=== PATIENT | male | born 1965 | race Hispanic/Latino ===

== ENCOUNTER 2024-05-07 12:25 | Emergency (ER) | payer SELFPAY ==
[2024-05-07 12:30] VITALS: BP 216/138
--- NOTE | 2024-05-07 13:40 | ED.GENMED ---
History of Present Illness
General
Chief Complaint: Musculo-Skeletal Complaint
Source: patient
Time Seen by Provider: 05/07/24 12:42
History of Present Illness
History of Present Illness:
58-year-old male presenting to the emergency department for evaluation of right wrist pain following an accidental fall in the snow and ice 3 weeks ago. Patient has had continued pain that worsens with range of motion. [id number]. No
other injuries sustained. Also of note while in triage patient was found to be significantly hypertensive. Family notes that he does not have any medical insurance and has not been seen by medical at least 12 years. He has no chest pain,
shortness of breath, headaches, visual changes and feels that he is in his usual state of health outside of his right wrist pain that has been ongoing.
Past History
Past History
ED Past Medical History: None
ED Past Surgical History: None
Social History
Tobacco: Non-smoker
Alcohol: None
Drug: None
Personal: Single
Living: with family
Review of Systems
Review of Systems
All Other Systems: ROS reviewed and negative except as documented in HPI and ROS
Phy Exam
Physical Exam
Physical Exam:
GENERAL: Alert , in no apparent distress
EYE: conjunctiva clear
Head: Normocephalic atraumatic
NECK: Supple,
ENT: mmm.
LUNGS: no acute respiratory distress
NEUROLOGICAL: Alert and oriented
SKIN: Warm and dry, skin intact.
MUSCULOSKELETAL: Right upper extremity: No obvious deformity, erythema, edema, ecchymosis, abrasions or lacerations. Patient allows for full range of motion of the digits, wrist, elbow and shoulder without difficulty. Extremity is otherwise warm
and well-perfused and neurovascularly intact
PSYCH: Normal and appropriate interaction.
Scores
Heart Failure Risk
Heart Failure Risk Score: Not Applicable
Heart Score for Chest Pain Patients
STEMI patient?: Not applicable
Withdrawal Assessment of Alcohol
Withdrawal Assessment Completed?: Not applicable
Course
Orders/Labs/Results
Orders:
Orders
05/07/24 12:37
CR Wrist - Right Min 3 Views Urgent
Reason For Exam: injury
Vital Signs
Initial and Last Documented VS:
Initial Vital Signs
Temp Pulse Resp BP Pulse Ox
97.6 F 82 16 216/138 100
05/07/24 12:30 05/07/24 12:30 05/07/24 12:30 05/07/24 12:30 05/07/24 12:30
Last Documented Vital Signs
Temp Pulse Resp BP Pulse Ox
97.6 F 82 16 216/138 100
05/07/24 12:30 05/07/24 12:30 05/07/24 12:30 05/07/24 12:30 05/07/24 12:30
Procedures
Splinting/Sling Placement
Right Upper Arm:
Procedure completed by: Adeline
Pre-splint extermity exam: neurovascular intact
Type of splint: volar
Splint material: other (3 inch Ortho-Glass)
Splint checked by provider?: Yes
Normal distal neurovascular exam?: Yes
MDM/Problems Addressed
Differential Diagnosis Includes:
Fracture, sprain, contusion, incidental finding of asymptomatic hypertension, no signs to suggest hypertensive urgency/emergency
MDM/Problems Addressed:
58-year-old male presenting to the emergency department for evaluation of right wrist pain following accidental fall 3 weeks ago. X-ray ordered from triage shows a triquetral fracture. Splint was placed as above. Patient currently does not have a
primary care provider and does not have insurance. Given his lack of outpatient follow-up I will provide him with information for the medical clinic. I will also initiate the patient on a low-dose of amlodipine to help with the start of better
blood pressure management. Patient family will help arrange follow-up with the medical clinic. They are aware of return precautions to the emergency department. Patient is otherwise stable for
*Critical Care Note
Total Time (30-74mins, 75-104mins- exclusive of procedures): Not Applicable
ED Attending Note
-
Portions of this chart may have been created with voice recognition software.� Occasional wrong word or��sound alike� substitutions may have occurred due to the inherent limitations of voice recognition software.
Discharge Plan
Departure
Patient Disposition: Home (Routine Discharge)
Date of Disposition: 05/07/24
Time of Disposition: 13:40
Patient with high blood pressure during this ER visit?: Yes
Discharge Problem:
Fracture of triquetral bone of right wrist, Hypertension
Instructions: High blood pressure - ED discharge instructions, Wrist Fracture
Prescriptions:
New
amlodipine 5 mg tablet
5 mg PO DAILY Qty: 60 0RF
Referrals:
[facility] [Outside] (Please call for appointment)
Interventions
Interventions:
*Risk Screen - Suicide Last Done: 05/07/24 12:33
*Neglect/Abuse Screening Last Done: 05/07/24 12:33
*Nursing Disposition Last Done: 05/07/24 13:54
Discharge Date and Time
Discharge Date/Time: 05/07/24 13:54
Print Language: KHMER
== END 2024-05-07 13:54 | disposition home or self-care (01) ==
LOC: EMR 12:25
PROVIDERS: EMERGENCY PHYSICIAN Emergency Medicine
DX: S62.111A Displaced fracture of triquetrum [cuneiform] bone, right wrist, initial encounter for closed fracture (principal); W00.0XXA Fall on same level due to ice and snow, initial encounter; I10 Essential (primary) hypertension; Z59.71 Insufficient health insurance coverage
CPT/HCPCS: 99283; 29125; 73110